=== PATIENT | male | born 1995 | race Hispanic/Latino ===

== ENCOUNTER 2018-04-16 18:09 | Emergency (ER) | payer MEDICAID, OTHER ==
[2018-04-16] MEDS ORDERED: IBUPROFEN 600 MG TABLET ONE (19:46)
[2018-04-16] MEDS ORDERED: CYCLOBENZAPRINE HCL 10 MG TABLET ONE (19:46)
== END 2018-04-16 20:11 | disposition home or self-care (01) ==
LOC: EDH 18:09
DX: S40.021A Contusion of right upper arm, initial encounter (principal); Z72.0 Tobacco use; V49.49XA Driver injured in collision with other motor vehicles in traffic accident, initial encounter; Y93.89 Activity, other specified; Y92.410 Unspecified street and highway as the place of occurrence of the external cause; Y99.8 Other external cause status
CPT/HCPCS: 73060; 73090

== ENCOUNTER 2019-09-09 03:26 | Emergency (ER) | payer SELFPAY ==
[2019-09-09] MEDS ORDERED: METOCLOPRAMIDE 10 MG/2 ML VIAL ONE (03:50)
[2019-09-09] MEDS ORDERED: ONDANSETRON HCL 4 MG/2 ML VIAL ONE (03:50)
[2019-09-09] MEDS ORDERED: FAMOTIDINE/PF 20 MG/2 ML VIAL IV ONE (03:50)
[2019-09-09 04:14] LABS: BASOPHILS % (AUTO) 0.2 % (0.0-5.0); EOSINOPHILS % (AUTO) 0.6 % (0.0-8.0); HEMATOCRIT 43.9 % (42-54); LYMPHOCYTES % (AUTO) 20.5 % (21.0-51.0); MEAN CORPUSCULAR HGB CONC 34.9 g/dL (32.0-36.0); MONOCYTES % (AUTO) 6.6 % (3.0-13.0); NEUTROPHILS % (AUTO) 71.7 % (40.0-77.0); PLATELET COUNT (AUTO) 246 K/uL (130-400); RED BLOOD CELL COUNT(AUTO) 4.93 MIL/uL (4.50-6.20); RED CELL DISTRIBUTION WIDTH 11.9 % (11.0-15.5); WHITE BLOOD COUNT (AUTO) 12.5 K/uL (4.8-10.8)
[2019-09-09 04:22] LABS: CREATININE 1.2 mg/dL (0.5-1.5); POTASSIUM 3.9 mmol/L (3.5-5.1)
[2019-09-09 04:26] LABS: ALBUMIN 4.2 g/dL (3.5-5.0); BILIRUBIN,TOTAL 0.5 mg/dL (0.2-1.0)
== END 2019-09-09 06:02 | disposition home or self-care (01) ==
LOC: EDH 03:26
DX: K29.00 Acute gastritis without bleeding (principal); E86.9 Volume depletion, unspecified
CPT/HCPCS: 36415; 76705; 80053; 83690; 85025; 96361; 96374; 96375; 99284; J2405; J2765; J3490; J7030

== ENCOUNTER 2019-11-14 17:51 | Inpatient (IN) | payer OTHER ==
[~2019-11-14] VITALS: Ht 180.3 cm; Wt 131.1 kg
[2019-11-14] MEDS ORDERED: KETOROLAC TROMETHAMINE 30MG/ML ONE (18:15)
[2019-11-14 18:45] LABS: BASOPHILS % (AUTO) 0.3 % (0.0-5.0); EOSINOPHILS % (AUTO) 0.1 % (0.0-8.0); HEMATOCRIT 44.2 % (42-54); LYMPHOCYTES % (AUTO) 11.2 % (21.0-51.0); MEAN CORPUSCULAR HEMOGLOBIN 31.7 pg (27.0-33.0); MEAN CORPUSCULAR HGB CONC 35.3 g/dL (32.0-36.0); MEAN CORPUSCULAR VOLUME 89.8 fL (79-99); MONOCYTES % (AUTO) 7.5 % (3.0-13.0); PLATELET COUNT (AUTO) 316 K/uL (130-400); RED BLOOD CELL COUNT(AUTO) 4.92 MIL/uL (4.50-6.20); RED CELL DISTRIBUTION WIDTH 11.5 % (11.0-15.5); WHITE BLOOD COUNT (AUTO) 22.4 K/uL (4.8-10.8)
[2019-11-14 19:05] LABS: CREATININE 1.2 mg/dL (0.5-1.5); POTASSIUM 3.8 mmol/L (3.5-5.1)
[2019-11-14] MEDS ORDERED: CEFTRIAXONE SODIUM 2 GM VIAL ONE (19:05)
[2019-11-14] MEDS ORDERED: SODIUM CHLORIDE 0.9% 100 ML IV ONE (19:06)
[2019-11-14 19:10] LABS: ALBUMIN 3.5 g/dL (3.5-5.0); BILIRUBIN,DIRECT 0.2 mg/dL (0.0-0.3); BILIRUBIN,TOTAL 0.7 mg/dL (0.2-1.0); TOTAL PROTEIN, SERUM 9.4 g/dL (6.0-8.3)
[2019-11-14] MEDS ORDERED: IOHEXOL-350 50ML VIAL IV ONE (19:19)
[2019-11-14] MEDS ORDERED: DEXAMETHASONE SOD PHOSPHATE 10MG/ML 1ML VIAL ONE (20:49)
[2019-11-14] MEDS ORDERED: ZOSYN 3.375GM+NS 50ML 50 ML IV ONE (21:14)
[2019-11-14] MEDS ORDERED: VANCOMYCIN 1GM+NS 250ML 250 ML IV ONE (21:14)
[2019-11-14] MEDS ORDERED: MAG HYDROX/AL HYDROX/SIMETH ES 30 ML SUSP UDCUP PO PRN (22:45)
[2019-11-14] MEDS ORDERED: ZOLPIDEM TARTRATE 5 MG TAB PO PRN (22:45)
[2019-11-14] MEDS ORDERED: LACTULOSE 20 GM/30 ML UDCUP PO PRN (22:45)
[2019-11-14] MEDS ORDERED: UNASYN 3GM+NS 100ML 3 GM/100 ML IV.KIT IV SCH (22:45)
[2019-11-14] MEDS ORDERED: ACETAMINOPHEN 325 MG TAB PO PRN ×2 (22:45)
[2019-11-14] MEDS ORDERED: GUAIFENESIN-DM 200/20 MG 10 ML PO PRN (22:45)
[2019-11-14] MEDS ORDERED: MAG HYDROX/AL HYDROX/SIMETH 30 ML, LIDOCAINE HCL 2% VISCOUS 30 ML, DIPHENHYDRAMINE HCL ... PO PRN ×3 (22:45)
[2019-11-14] MEDS ORDERED: DIPHENHYDRAMINE HCL 25 MG CAPSULE PO PRN (22:45)
[2019-11-14] MEDS ORDERED: ONDANSETRON HCL 4 MG/2 ML VIAL IV PRN (22:45)
[2019-11-14] MEDS ORDERED: DiphenhydrAMINE HCL 50 MG/ML VIAL IV PRN (22:45)
[2019-11-14] MEDS ORDERED: NITROGLYCERIN 0.4 MG SL TAB SL PRN (22:45)
[2019-11-14] MEDS ORDERED: AMPICILLIN SODIUM/SULBACTAM NA 1.5GM VIAL ONE ×2 (22:56→23:04)
[2019-11-15 02:57] VITALS: BP 149/70
[2019-11-15 06:28] LABS: BASOPHILS % (AUTO) 0.3 % (0.0-5.0); LYMPHOCYTES % (AUTO) 9.4 % (21.0-51.0); MEAN CORPUSCULAR HEMOGLOBIN 31.5 pg (27.0-33.0); MEAN CORPUSCULAR HGB CONC 34.4 g/dL (32.0-36.0); MEAN CORPUSCULAR VOLUME 91.5 fL (79-99); MONOCYTES % (AUTO) 2.6 % (3.0-13.0); NEUTROPHILS % (AUTO) 86.5 % (40.0-77.0); PLATELET COUNT (AUTO) 290 K/uL (130-400); RED CELL DISTRIBUTION WIDTH 11.4 % (11.0-15.5); WHITE BLOOD COUNT (AUTO) 14.4 K/uL (4.8-10.8)
[2019-11-15 06:46] LABS: BILIRUBIN,TOTAL 0.4 mg/dL (0.2-1.0); POTASSIUM 4.1 mmol/L (3.5-5.1); TOTAL PROTEIN, SERUM 8.4 g/dL (6.0-8.3)
[2019-11-15] MEDS: [UNRECOGNIZED DRUG - OTHER] IV SCH ×3 (07:09→16:53)
[2019-11-15] MEDS: UNASYN IV SCH ×3 (07:09→16:53)
[2019-11-15] MEDS ORDERED: FAMOTIDINE/PF 20 MG/2 ML VIAL IV ONE (07:24)
[2019-11-15 08:00] VITALS: BP 132/69
--- NOTE | 2019-11-15 08:00 | NUR ---
ASSESSMENT PT IS AAOX3 DENIES CP DENIES SOB DENIES NV. RESTING IN BED. CALL LIGHT WITHIN REACH.
[2019-11-15] MEDS ORDERED: FAMOTIDINE/PF 20 MG/2 ML VIAL IV SCH (09:00)
[2019-11-15 11:28] VITALS: BP 128/66
[2019-11-15] MEDS ORDERED: METHYLPREDNISOLONE SOD SUCC 125MG/2ML VIAL IVP SCH (11:45)
[2019-11-15 16:00] VITALS: BP 152/75
--- NOTE | 2019-11-15 16:23 | NUR ---
INITIAL SW spoke with patient's mother, Diamond Anderson, [phone]. Patient lives with parents. No home services. DME: BPM. Patient is able to complete ADL's and drives. He is not working at this time. NHP is home. Patient does not have insurance or benefits. He is a [place] citizen. BRITTANY educated patient's mother on [place] $4 medication program and [facility] $5 medication program. Patient is being assisted by [employer] for financial matters. Addendum: 11/15/19 at 1627 by JENN JEAN SS Amended: Links added.
--- NOTE | 2019-11-15 16:52 | NUR ---
PATIENT DESIRES TO LEAVE AMA STATES HE WILL LEAVE AMA THIS EVENING. RIGOBERTO SHANKAR AND DR BUSTOS MADE AWARE.
--- NOTE | 2019-11-15 17:21 | NUR ---
PT SIGNED AMA PAPERWORK PIV REMOVED CATH TIP INTACT. AWAITING RIDE.
--- NOTE | 2019-11-15 17:47 | NUR ---
DOWN TO ER ENTRANCE ALL BELONGINGS TAKEN
== END 2019-11-15 17:20 | disposition left against medical advice (07) | DRG 153 ==
LOC: EDH 17:51 → EDHIP 17:52 → 4DH 11-15 02:11
PROVIDERS: ADMIT Internal Medicine; ATTEND Internal Medicine
DX: J36 Peritonsillar abscess (principal); Z68.41 Body mass index [BMI] 40.0-44.9, adult; D72.829 Elevated white blood cell count, unspecified; E66.9 Obesity, unspecified; F17.210 Nicotine dependence, cigarettes, uncomplicated; I10 Essential (primary) hypertension; H92.02 Otalgia, left ear; Z20.828 Contact with and (suspected) exposure to other viral communicable diseases
CPT/HCPCS: 36415; 70491; 71045; 80048; 80053; 80076; 83605; 85025; 87040; 87426; 87880; G0378; J0295; J0696; J1100; J1885; J2543; J2930; J3370; J3490; Q9967; U0003

== ENCOUNTER 2021-09-02 15:21 | Emergency (ER) | payer OTHER ==
[~2021-09-02] VITALS: Ht 180.3 cm; Wt 122.5 kg
[2021-09-02 15:24] VITALS: BP 170/104
[2021-09-02] MEDS ORDERED: D-ME1POW16 PO (16:21)
[2021-09-02] MEDS ORDERED: IBUP-2071 PO (16:21)
[2021-09-02] MEDS ORDERED: DIPHENHYDRAMINE HCL 25 MG CAPSULE PO ONE (16:30)
[2021-09-02] MEDS ORDERED: ACETAMINOPHEN 500 MG TABLET PO ONE (16:30)
== END 2021-09-02 16:47 | disposition home or self-care (01) ==
LOC: EDH 15:21
DX: J06.9 Acute upper respiratory infection, unspecified (principal); Z20.822 Contact with and (suspected) exposure to COVID-19; I10 Essential (primary) hypertension; Z79.1 Long term (current) use of non-steroidal anti-inflammatories (NSAID)
CPT/HCPCS: 87635; 87804 ×2; 99283; C9803

== ENCOUNTER 2023-10-05 21:24 | Emergency (ER) | payer OTHER ==
[~2023-10-05] VITALS: Ht 182.9 cm; Wt 95.3 kg
[~2023-10-05 21:24] MED LIST: D-ME1POW16 PO; IBUP-2071 PO
[2023-10-05] MEDS: CEFTRIAXONE 1G VIAL IM ONE (23:46)
[2023-10-05] MEDS ORDERED: CEPH500B PO (23:56)
[2023-10-05] MEDS: TETANUS/DIPHTHERIA TOXOID [ADULT] 0.5 ML VIAL IM ONE (23:58)
[2023-10-06 00:06] VITALS: BP 142/89; PULSE 65; RESP 16; O2SAT 98
== END 2023-10-06 00:11 | disposition home or self-care (01) ==
LOC: EDH 21:24
DX: L02.811 Cutaneous abscess of head [any part, except face] (principal); Z79.899 Other long term (current) drug therapy
CPT/HCPCS: 99285; 90714; 76536; 96372; 90471; J0696

== ENCOUNTER 2024-01-08 12:02 | Emergency (ER) | payer SELFPAY ==
[~2024-01-08] VITALS: Ht 182.9 cm; Wt 88.9 kg
[~2024-01-08 12:02] MED LIST changes: +CEPH500B PO
[2024-01-08 12:16] VITALS: BP 138/76; PULSE 70; RESP 16; TEMP 98.2; O2SAT 99
[2024-01-08] MEDS: NEOMY SULF/BACITRA/POLYMYXIN B 1 EACH PACKET TP ONE (12:23)
[2024-01-08] MEDS: cePHALexin 500 MG CAPSULE PO ONE (12:23)
[2024-01-08] MEDS ORDERED: CEPH500T PO (12:24)
== END 2024-01-08 12:33 | disposition home or self-care (01) ==
LOC: EDH 12:02
DX: S81.812A Laceration without foreign body, left lower leg, initial encounter (principal); Z79.899 Other long term (current) drug therapy; W18.39XA Other fall on same level, initial encounter; Y93.89 Activity, other specified; Y92.89 Other specified places as the place of occurrence of the external cause; Y99.8 Other external cause status

== ENCOUNTER 2024-05-18 13:51 | Emergency (ER) | payer SELFPAY ==
[~2024-05-18] VITALS: Ht 180.3 cm; Wt 95.3 kg
[~2024-05-18 13:51] MED LIST changes: +CEPH500T PO
--- NOTE | 2024-05-18 13:57 | ERN ---
ED Note History of Present Illness Stated Complaint: SUICIDE THOUGHTS Chief Complaint: Suicidal Ideation Time Seen by MD: 13:53 Dictation: PATIENT IS A 29-YEAR-OLD SUICIDAL MALE HERE WITH TWO COMPLAINTS 1ST COMPLAINT IS STATES HE HAS BEEN SUICIDAL FOR SEVERAL WEEKS AFTER STOPPING HIS MEDICATIONS UNILATERALLY FOR DEPRESSION. HE STATES HE WANTED TO RUN INTO TRAFFIC TO KILL HIMSELF THIS MORNING, WHEN HE GOT TO THE [employer] HE TWISTED HIS ANKLE AND NOW IS HAVING RIGHT ANKLE PAIN. HE STATES HE DID IT BECAUSE HE KNEW THE CAR WAS GOING TO HURT HIM. Allergies: Coded Allergies: No Known Drug Allergies (Unverified Allergy, Unknown, 01/08/24) Home Meds Active Scripts Cephalexin (Cephalexin) 500 Mg Tablet, 1 TAB PO TID for 10 Days, #30 TAB 0 Refills Prov:SABINE WERNER NP 01/08/24 Cephalexin Monohydrate (Keflex) 500 Mg Cap, 500 MG PO QID for 7 Days, #28 CAP Prov:LORNE PEREZ MD 10/05/23 Ibuprofen (Ibuprofen) 800 Mg Tablet, 800 MG PO TIDP PRN for PAIN, #45 TAB Prov:NIRALI CAZARES 09/02/21 D-Methorphan/PE/Acetaminophen (Theraflu Ms Severe Cold Pckt) 1 Each Powd.pack, 1 EACH PO QIDP, #20 PACK Prov:NIRALI CAZARES 09/02/21 Past Medical History Past Medical History: No Pertinent History Surgical History: None Family History: Negative Social History: Negative RN Note Reviewed/Agreed w/PFSH: Yes Review of System Dictation CONSTITUTIONAL: NEGATIVE EXCEPT FOR HPI HEAD/FACE: NEGATIVE EXCEPT FOR HPI EENT: NEGATIVE EXCEPT FOR HPI RESPIRATORY: NEGATIVE EXCEPT FOR HPI GASTROINTESTINAL/ABDOMINAL: NEGATIVE EXCEPT FOR HPI GENITOURINARY: NEGATIVE EXCEPT FOR HPI MUSCULOSKELETAL: NEGATIVE EXCEPT FOR HPI RIGHT LATERAL ANKLE PAIN INTEGUMENTARY: NEGATIVE EXCEPT FOR HPI NEUROLOGICAL/PSYCH: NEGATIVE EXCEPT FOR HPI SUICIDAL WITH PLANS TO RUN INTO TRAFFIC TO HEMATOLOGIC/LYMPHATIC: NEGATIVE EXCEPT FOR HPI ALL SYSTEMS NEGATIVE, EXCEPT NOTED ABOVE. 13 POINT REVIEW OF SYSTEMS ASSESSED AND ALL NEGATIVE EXCEPT FOR ABOVE. Initial Vital Sign VS Vital Signs Date Time Temp Pulse Resp B/P (MAP) Pulse Ox O2 Delivery O2 Flow Rate FiO2 05/18/24 13:52 98.1 64 16 134/92 98 Room Air Physical Exam Dictation VITAL SIGNS REVIEWED GENERAL APPEARANCE: ALERT, ORIENTED X 3, MILD ACUTE DISTRESS, WELL DEVELOPED, NOURISHED. HEAD AND FACE: NON-TRAUMATIC. EYES: PERRL, PINK CONJUNCTIVAS, EYELID NO TRAUMA, ANTERIOR CHAMBER WITH ARCUS SENILIS. EARS: PINNAS INTACT AND NO SIGNS OF TRAUMA OR ERYTHEMA EAR CANALS CLEAR AND NO DISCHARGE TM NO ERYTHEMA NOSE: NO DISCHARGE, NO BLEEDING. OROPHARYNX: MOUTH NORMAL, TONGUE PINK, PHARYNX CLEAR,NO ERYTHEMA, TONSILS NO EXUDATES, NO ABSCESSES NOTED, MUCOUS MEMBRANE MOIST NECK: SUPPLE, NON-TENDER, NO THYROMEGALY, NO MASSES, NO JVD, NO BRUITS BREAST:DEFERRED CHEST:NO TENDERNESS, NO CREPITUS, NO PARADOXICAL MOVEMENT, NO RETRACTIONS LUNGS:CLEAR, WELL-VENTILATED, SYMMETRIC, NO RALES, NO WHEEZING, NO RHONCHI, NO STRIDOR, GOOD BREATH SOUNDS BILATERALLY HEART: REGULAR RATE, REGULAR RHYTHM, NO MURMUR, NO GALLOPS VASCULAR: NO PERIPHERAL EDEMA, ABDOMEN: SOFT, POSITIVE BOWEL SOUNDS, NONDISTENDED, NO GUARDING, NONTENDER, NO REBOUND, NO MASSES NO HEPATOMEGALY, NO SPLENOMEGALY, NO WARD'S SIGN, NO HERNIAS. RECTAL: DEFERRED GENITAL: DEFERRED NEUROLOGICAL: NORMAL SPEECH, MOTOR FUNCTION INTACT, SENSORY FUNCTION INTACT PATIENT STATES HE IS SUICIDAL AND WANTS TO RUN INTO TRAFFIC TO KILL HIMSELF. MUSCULOSKELETAL: NECK NONTENDER, FULL RANGE OF MOTION, BACK NONTENDER, FULL RANGE OF MOTION, EXTREMITIES: MILD RIGHT LATERAL ANKLE PAIN. SKIN: COLOR PINK, DRY, NO TURGOR, NO RASH, NO LACERATIONS, NO ABRASIONS, NO CONTUSIONS. LYMPHATIC: DEFERRED Results (Laboratory/Radiology) Laboratory/Radiology Laboratory Tests Test 05/18/24 14:02 05/18/24 14:11 White Blood Count 7.4 K/uL (4.8-10.8) Red Blood Count 5.13 MIL/uL (4.50-6.20) Hemoglobin 16.2 g/dL (14.0-18.0) Hematocrit 44.1 % (42-54) Mean Corpuscular Volume 86.0 fL (79-99) Mean Corpuscular Hemoglobin 31.6 pg (27.0-33.0) Mean Corpuscular Hemoglobin Concent 36.7 g/dL (32.0-36.0) H Red Cell Distribution Width 12.1 % (11.0-15.5) Platelet Count 250 K/uL (130-400) Mean Platelet Volume 9.6 fL (7.5-10.5) Immature Granulocyte % (Auto) 0.4 % (0-1) Neutrophils (%) (Auto) 68.8 % (40.0-77.0) Lymphocytes (%) (Auto) 22.6 % (21.0-51.0) Monocytes (%) (Auto) 7.4 % (3.0-13.0) Eosinophils (%) (Auto) 0.5 % (0.0-8.0) Basophils (%) (Auto) 0.3 % (0.0-5.0) Neutrophils # (Auto) 5.1 K/uL (1.8-7.7) Lymphocytes # (Auto) 1.7 K/uL (1.0-4.8) Monocytes # (Auto) 0.6 K/uL (0.1-1.0) Eosinophils # (Auto) 0.04 K/uL (0.00-0.70) Basophils # (Auto) 0.02 K/uL (0.00-0.20) Absolute Immature Granulocyte (auto 0.03 K/uL (0-1) Nucleated Red Blood Cells 0.0 % (0.0-0.19) Red Blood Cell Morphology ANISO 1+ Sodium Level 138 mmol/L (136-145) Potassium Level 3.8 mmol/L (3.5-5.1) Chloride Level 103 mmol/L (101-111) Carbon Dioxide Level 27 mmol/L (21-32) Blood Urea Nitrogen 12 mg/dL (7-18) Creatinine 1.1 mg/dL (0.5-1.3) Glomerular Filtration Rate Calc 94 mL/min (>90) Random Glucose 87 mg/dL (70-105) Total Calcium 8.8 mg/dL (8.5-10.1) Total Creatine Kinase 224 U/L (21-232) Acetaminophen Level < 1 mcg/mL (10-29) L Serum Alcohol < 3 mg/dL (0-10) Urine Opiates Screen NEGATIVE (NEGATIVE) Urine Barbiturates Screen NEGATIVE (NEGATIVE) Urine Phencyclidine Screen NEGATIVE (NEGATIVE) Urine Amphetamines Screen NEGATIVE (NEGATIVE) Urine Benzodiazepines Screen NEGATIVE (NEGATIVE) Urine Cocaine Screen POSITIVE (NEGATIVE) H Urine Marijuana (THC) Screen POSITIVE (NEGATIVE) H ANKLE COMP 3VWS RT INDICATION: RIGHT LATERAL ANKLE PAIN AFTER TWISTING ANKLE THIS MORNING TECHNIQUE: ANKLE COMP 3VWS RT. FINDINGS AND IMPRESSION: No displaced fracture or dislocation is seen. Correlate clinically. There is mild soft tissue swelling No radiopaque foreign body is identified. Labs Reviewed?: Yes ED Course ED Course Orders Procedure Category Date Status Time Ankle Comp 3vws Rt RAD 05/18/24 Resulted 13:53 Drug Screen Urine LAB 05/18/24 Complete 13:53 Cbc With Differential LAB 05/18/24 Complete 13:53 Alcohol, Blood LAB 05/18/24 Complete 13:53 Acetaminophen LAB 05/18/24 Complete 13:53 Creatine Kinase, Total LAB 05/18/24 Complete 13:53 Basic Metabolic Panel LAB 05/18/24 Complete 13:53 Suicide Precautions CPOE 05/18/24 Transmitted 13:53 Vital Signs Date Time Temp Pulse Resp B/P (MAP) Pulse Ox O2 Delivery O2 Flow Rate FiO2 05/18/24 13:52 98.1 64 16 134/92 98 Room Air 1940/[place] TROPICAL HERE AND SCREENED TO PATIENT. PATIENT DOES NOT MEET CRITERIA FOR INPATIENT HOSPITALIZATION. DISCHARGED HOME WITH PASSIVE SUICIDAL THOUGHTS, ANXIETY REACTION, RIGHT ANKLE SPRAIN Medical Decision Making MDM MDM: DIFFERENTIAL DIAGNOSIS: SUICIDALITY/ANKLE SPRAIN/FRACTURE/DEPRESSION/MULTIPLE DRUG ABUSE/ANXIETY RATIONALE: TESTS CONSIDERED AND ORDERED SECONDARY TO SHARED DECISION MAKING INCLUDE: LABS/RADIOLOGY PREVIOUS OUTSIDE RECORDS REVIEWED: OLD ER VISITS. RISK OF COMPLICATION AND/OR MORBIDITY OR MORTALITY OF PATIENT MANAGEMENT: NONE MEDICATIONS-PER MEDICATION RECONCILIATION NEED FOR HOSPITALIZATION: PATIENT DOES NOT MEET CRITERIA FOR HOSPITALIZATION. NONE NEED FOR EMERGENCY MAJOR/MINOR SURGERY: NO THERE ARE NO SOCIAL CONCERNS WITH THIS PATIENT. PATIENT ABUSES MULTIPLE DRUGS TO INCLUDE COCAINE WITH RISK OF HEART ATTACK, STROKE, .. HE WAS STRONGLY ADVISED TO STOP PRESCRIPTION DRUG MANAGEMENT IBUPROFEN PRESCRIPTIONS WILL INCLUDE SYMPTOMATIC CARE PATIENT'S PRIOR EXTERNAL MEDICAL RECORDS FROM OTHER ER VISITS WERE REVIEWED BY ME INDICATED. PRIOR TESTING AND RESULTS FROM PREVIOUS VISITS WERE REVIEWED. PRIOR TESTS WERE TAKEN INTO ACCOUNT WITH MEDICAL DECISION MAKING AND RESOURCE UTILIZATION, INDEPENDENT HISTORIAN/HISTORIANS WERE USED TO OBTAIN COMPLETE MEDICAL HISTORY. I INDEPENDENTLY INTERPRETED THE TEST THAT WERE PERFORMED, RESULTS WERE REVIEWED BY ME AND CONSIDERED FINDINGS ON RADIOLOGY IF ORDERED. MEDICAL MANAGEMENT AND EXAMINATION INTERPRETATION DISCUSSIONS WERE HAD BY ME WITH OTHER QUALIFIED HEALTHCARE PROFESSIONALS INDICATED FOR THE PATIENT'S CARE. DX & DISP Disposition: Discharge Departure Impression: Primary Impression: Anxiety reaction Additional Impressions: Passive suicidal ideations, Polydrug abuse, continuous, Right ankle sprain Condition: Stable Scripts Ibuprofen (Ibuprofen 800 mg Tab) 800 Mg Tab 800 MG PO Q8H PRN for fever or pain, #30 TAB 0 Refills Prov: SABINE WERNER NP 05/18/24 Referrals: SELF,REFERRAL (PCP) Time of Disposition: 19:43 I have reviewed the case, and I agree with, Diagnosis and Plan SABINE WERNER NP May 18, 2024 13:57
[2024-05-18 14:22] LABS: BASOPHILS # (AUTO) 0.02 K/uL (0.00-0.20); BASOPHILS % (AUTO) 0.3 % (0.0-5.0); EOSINOPHILS # (AUTO) 0.04 K/uL (0.00-0.70); EOSINOPHILS % (AUTO) 0.5 % (0.0-8.0); HEMATOCRIT 44.1 % (42-54); IMMATURE GRANULOCYTE ABSOLUTE 0.03 K/uL (0-1); LYMPHOCYTES # (AUTO) 1.7 K/uL (1.0-4.8); LYMPHOCYTES % (AUTO) 22.6 % (21.0-51.0); MEAN CORPUSCULAR HEMOGLOBIN 31.6 pg (27.0-33.0); MEAN CORPUSCULAR HGB CONC 36.7 g/dL (32.0-36.0); MONOCYTES # (AUTO) 0.6 K/uL (0.1-1.0); MONOCYTES % (AUTO) 7.4 % (3.0-13.0); NEUTROPHILS # (AUTO) 5.1 K/uL (1.8-7.7); NEUTROPHILS % (AUTO) 68.8 % (40.0-77.0); PLATELET COUNT (AUTO) 250 K/uL (130-400); RED BLOOD CELL COUNT(AUTO) 5.13 MIL/uL (4.50-6.20); RED CELL DISTRIBUTION WIDTH 12.1 % (11.0-15.5); WHITE BLOOD COUNT (AUTO) 7.4 K/uL (4.8-10.8)
[2024-05-18 14:35] LABS: CARBON DIOXIDE 27 mmol/L (21-32); CHLORIDE 103 mmol/L (101-111); CREATININE 1.1 mg/dL (0.5-1.3); GLOMERULAR FILTR. RATE CALC 94 mL/min (>90); GLUCOSE,RANDOM 87 mg/dL (70-105); POTASSIUM 3.8 mmol/L (3.5-5.1); SODIUM SERUM 138 mmol/L (136-145); UREA NITROGEN, BLOOD 12 mg/dL (7-18)
[2024-05-18 14:40] LABS: AMPHET/METH SCREEN,URINE NEGATIVE (NEGATIVE); BARBITURATE SCREEN, URINE NEGATIVE (NEGATIVE); BENZODIAZEPINES SCREEN,URINE NEGATIVE (NEGATIVE); CANNABINOID SCREEN,URINE POSITIVE (NEGATIVE); COCAINE SCREEN,URINE POSITIVE (NEGATIVE); OPIATE SCREEN,URINE NEGATIVE (NEGATIVE); PHENCYCLIDINE SCREEN,URINE NEGATIVE (NEGATIVE)
--- NOTE | 2024-05-18 14:41 | HMCIMG ---
ANKLE COMP 3VWS RT INDICATION: RIGHT LATERAL ANKLE PAIN AFTER TWISTING ANKLE THIS MORNING TECHNIQUE: ANKLE COMP 3VWS RT. FINDINGS AND IMPRESSION: No displaced fracture or dislocation is seen. Correlate clinically. There is mild soft tissue swelling No radiopaque foreign body is identified.
[2024-05-18 14:46] LABS: ALCOHOL, BLOOD < 3 mg/dL (0-10); CREATINE KINASE, TOTAL 224 U/L (21-232)
[2024-05-18 14:50] LABS: ACETAMINOPHEN < 1 mcg/mL (10-29)
--- NOTE | 2024-05-18 16:23 | NUR ---
[facility] CONSULT COMPLETE, THEY WILL DISPATCH A PSYCHE SCREENER.
[2024-05-18] MEDS ORDERED: IBUP-2077 PO (19:44)
[2024-05-18 20:05] VITALS: BP 113/65; PULSE 71; RESP 18; TEMP 97.7; O2SAT 100
== END 2024-05-18 20:06 | disposition home or self-care (01) ==
LOC: EDH 13:51
DX: S93.401A Sprain of unspecified ligament of right ankle, initial encounter (principal); F41.1 Generalized anxiety disorder; R45.851 Suicidal ideations; F19.10 Other psychoactive substance abuse, uncomplicated; X50.1XXA Overexertion from prolonged static or awkward postures, initial encounter; Y93.89 Activity, other specified; Y92.89 Other specified places as the place of occurrence of the external cause; Y99.8 Other external cause status
CPT/HCPCS: 36415; 73610; 80048; 80305; 82550; 85025; 99284

== ENCOUNTER 2024-06-09 07:06 | Emergency (ER) | payer SELFPAY ==
[~2024-06-09] VITALS: Ht 182.9 cm; Wt 95.3 kg
[~2024-06-09 07:06] MED LIST changes: +IBUP-2077 PO
[2024-06-09 07:10] VITALS: TEMP 98.4
--- NOTE | 2024-06-09 08:03 | ERN ---
ED Note History of Present Illness Stated Complaint: CELLULITIS TO HEAD Chief Complaint: Cellulitis Time Seen by MD: 07:40 Dictation: History of present illness: 29-year-old male with past medical history of anxiety, high blood pressure(not on medications) presented to ED with complaints of swelling over back of head and over forehead of 3 days duration. As per the patient, he noticed the swelling when he woke up from sleep. He states that it might be from bug bites ?he found a spider near the couch. Swelling over the right forehead rapidly increased in size within past couple of hours. Patient and his ex- tried to squeeze the swelling. Similar history in the past. He also states that he has headache, pain over the swelling, and finds it difficult to find words. No fever, no body, no joint pain, no blurry of vision reported. Allergies: Coded Allergies: No Known Drug Allergies (Unverified Allergy, Unknown, 01/08/24) Home Meds Active Scripts Ketorolac Tromethamine (Toradol) 10 Mg Tab, 1 TAB PO TID for pain for 5 Days, #15 TAB 0 Refills Prov:NADEGE SANDHU MD 06/09/24 Cetirizine HCl (Cetirizine HCl) 10 Mg Tab.chew, 1 TAB PO HS for allergy symptoms for 5 Days, #5 TAB 0 Refills Prov:NADEGE SANDHU MD 06/09/24 Mupirocin (Mupirocin Ointment) 2 % Oint, 1 APPL TP TID for 5 Days, #15 GM 0 Refills apply to affected area(s) Prov:NADEGE SANDHU MD 06/09/24 Doxycycline Hyclate (Doxycycline Hyclate) 100 Mg Capsule, 1 CAP PO BID for Scalp swelling for 7 Days, #14 CAP 0 Refills Prov:NADEGE SANDHU MD 06/09/24 Ibuprofen (Ibuprofen 800 mg Tab) 800 Mg Tab, 800 MG PO Q8H PRN for fever or pain, #30 TAB 0 Refills Prov:SABINE WERNER NP 05/18/24 Cephalexin (Cephalexin) 500 Mg Tablet, 1 TAB PO TID for 10 Days, #30 TAB 0 Ref ills Prov:SABINE WERNER NP 01/08/24 Cephalexin Monohydrate (Keflex) 500 Mg Cap, 500 MG PO QID for 7 Days, #28 CAP Prov:LORNE PEREZ MD 10/05/23 Ibuprofen (Ibuprofen) 800 Mg Tablet, 800 MG PO TIDP PRN for PAIN, #45 TAB Prov:NIRALI CAZARES 09/02/21 D-Methorphan/PE/Acetaminophen (Theraflu Ms Severe Cold Pckt) 1 Each Powd.pack, 1 EACH PO QIDP, #20 PACK Prov:NIRALI CAZARES 09/02/21 Past Medical History Past Medical History: No Pertinent History Surgical History: None Family History: Negative Social History: Negative Review of System Dictation REVIEW OF SYSTEMS CONSTITUTIONAL: Denies fevers, chills, or night sweats. No unintentional weight loss reported. ENT: No hearing loss, otalgia, otorrhea, rhinitis, rhinorrhea, hoarseness, or sore throat. CARDIOVASCULAR: Denies any exertional angina, dyspnea on exertion, orthopnea, paroxysmal nocturnal dyspnea, palpitations claudication. PULMONARY: Denies any shortness of breath, cough, phlegm / sputum, hemoptysis, pleuritic chest pain. SLEEP: Denies morning headaches, daytime somnolence or napping. Denies difficul ty falling asleep, staying asleep, waking from sleep. Denies knowledge of snoring. GASTROINTESTINAL: Denies any type of dysphagia to either liquids or solids. Denies nausea, vomiting, abdominal pain, diarrhea, constipation, blood in stools . NEUROLOGICAL: Denies headache, motor weakness, sensory deficit, vertigo / spinning sensation, gait abnormalities, or tremors. GENITOURINARY: Denies frequency, urgency, nocturia, hematuria or incontinence, low urinary stream, straining to void, urinary intermittency or hesitancy ENDOCRINOLOGY: Denies polyuria, polydipsia, polyphagia or heat / cold intolerance. HEMATOLOGY: Denies thrombophilia / previous clots, or coagulopathy / bleeding disorders. ONCOLOGIC: Denies personal history of malignancy. DERMATOLOGIC: Denies rashes or pruritus. PSYCHIATRIC: Denies any suicidal or homicidal ideation. Denies hallucinations. Initial Vital Sign VS Vital Signs Date Time Temp Pulse Resp B/P (MAP) Pulse Ox O2 Delivery O2 Flow Rate FiO2 06/09/24 07:08 98.4 79 16 135/84 97 Room Air 0 06/09/24 07:10 21 Physical Exam Dictation PHYSICAL EXAM GENERAL APPEARANCE: Well nourished . Awake and alert. Oriented to time, place and person. No acute cardiopulmonary distress. HEENT: Head normocephalic , 3 x 3 cm swelling over the occipital region-crusted point in the center, fluctuant and tender. 4x4 cm swelling on the right forehead-soft, tender with crusted point the center. Sclera anicteric . Pupils are round and reactive. Extraocular movements intact . No conjunctival injection. No nasal congestion. No throat congestion .Oral mucosa moist. NECK: Supple. No JVD. No thyromegaly. No submental, submandibular, pre- /postauricular, occipital or supraclavicular lymphadenopathy. No carotid bruits. CHEST: Normal chest expansion. No Telemetry. LUNGS: Clear to auscultation bilaterally . No rales, rhonchi or any wheezing. Equal tactile fremitus. Resonant to percussion . CARDIOVASCULAR: Regular rate and rhythm. S1 and S2 normal. No rubs, murmurs or gallops. ABDOMEN: Soft, nontender, and nondistended. There is no rebound tenderness, voluntary guarding, or rigidity. No hepatosplenomegaly. Bowel sounds normal in all four quadrants . NEUROLOGICAL: Cranial nerves II-XII grossly intact. Motor is 5/5 in bilateral upper and lower extremities . No sensory deficits. EXTREMITIES: No edema, No cyanosis , No clubbing. Good capillary refill. SKIN: No skin breakdown. No rashes or lesions . PSYCHIATRY: Normal affect .No auditory or visual hallucinations. Normal speech. No dysarthria. Results (Laboratory/Radiology) Laboratory/Radiology Laboratory Tests Test 06/09/24 08:23 White Blood Count 16.1 K/uL (4.8-10.8) H Red Blood Count 4.66 MIL/uL (4.50-6.20) Hemoglobin 14.8 g/dL (14.0-18.0) Hematocrit 41.3 % (42-54) L Mean Corpuscular Volume 88.6 fL (79-99) Mean Corpuscular Hemoglobin 31.8 pg (27.0-33.0) Mean Corpuscular Hemoglobin Concent 35.8 g/dL (32.0-36.0) Red Cell Distribution Width 11.9 % (11.0-15.5) Platelet Count 234 K/uL (130-400) Mean Platelet Volume 9.0 fL (7.5-10.5) Nucleated Red Blood Cells 0.0 % (0.0-0.19) Sodium Level 137 mmol/L (136-145) Potassium Level 4.0 mmol/L (3.5-5.1) Chloride Level 99 mmol/L (101-111) L Carbon Dioxide Level 33 mmol/L (21-32) H Blood Urea Nitrogen 11 mg/dL (7-18) Creatinine 0.8 mg/dL (0.5-1.3) Glomerular Filtration Rate Calc 124 mL/min (>90) Random Glucose 94 mg/dL (70-105) Total Calcium 8.9 mg/dL (8.5-10.1) CT Scan Comment: Exam Type: CT HEAD/BRAIN W/O CONTRAST Clinical Information: SWELLING FOREHEAD AND OCCPUT, DIFFICULTY FINDING WORDS The examination is unremarkable. Wilson-white matter junction is preserved. No intra or extra axial lesions or fluid collections are seen. Specifically, wilson and white matter are normal in signal characteristics with normal caliber of ventricles and periventricular cisterns with no evidence of intra or or extra-axial hemorrhage, lacunar infarct, or major territorial infarct, mass, or other abnormality. There are no infarcts. There are no hemorrhages. Periventricular white matter locations are preserved. The orbital contents and structures of the posterior fossa are intact. Possible right frontoparietal scalp hematoma without underlying fractures. Impression: Normal CT of the brain. ED Course ED Course Orders Procedure Category Date Status Time Cbc Without LAB 06/09/24 Complete Differential 07:39 Basic Metabolic Panel LAB 06/09/24 Complete 07:39 Ct Head/Brain W/O CT 06/09/24 Resulted Contrast 07:39 Dexamethasone 4mg/Ml PHA 06/09/24 Complete 1ml Vial (Dexametha 08:00 Ketorolac PHA 06/09/24 Complete Tromethamine 15mg/Ml 08:00 Dexamethasone 10mg/Ml PHA 06/09/24 Complete 1ml Vial (Dexameth 08:18 Current Medications Medications (Trade) Dose Ordered Sig/Thao Route PRN Reason Start Time Stop Time Status Last Admin Dose Admin Dexamethasone Sodium Phosphate (dexaMETHasone 4MG/ML 1ML VIAL) 4 mg ONCE ONCE IV 06/09/24 08:00 06/09/24 08:01 DC Dexamethasone Sodium Phosphate (dexaMETHasone 10MG/ML 1ML VIAL) 10 mg STK-MED ONCE .ROUTE 06/09/24 08:18 06/09/24 08:19 DC 06/09/24 08:21 Ketorolac Tromethamine (toRADol) 15 mg ONCE ONCE IM 06/09/24 08:00 06/09/24 08:01 DC 06/09/24 08:21 Vital Signs Date Time Temp Pulse Resp B/P (MAP) Pulse Ox O2 Delivery O2 Flow Rate FiO2 06/09/24 08:45 59 16 132/71 100 Room Air* 0 21 06/09/24 07:10 98.4 85 16 135/84 96 Room Air* 0 21 06/09/24 07:08 98.4 79 16 135/84 97 Room Air 0 7:45 a.m.-patient is hemodynamically stable. Ordered CBC, BNP, CT head given the symptoms. Plan is to drain the swelling. 9:30 am : No pus material drained. I&D done on the occipital swelling . bloody material squezed out . CT brain- normal. WBC 16.1,Vitals stable. 9:45 am: patient tolerated the procedure well.Will discharge him home . Medical Decision Making MDM Differential diagnosis : Bug bite, local allergic reaction, furunculitis Rationale: Tests considered and ordered secondary to shared decision making include: CBC, Bmp, CT head I will re-evaluate the patient after treatment and diagnostic exams have returned to determine whether they require further testing, can be safely discharged home, or need admission for further treatment and evaluation. Given the social determinants of health affecting care, including literacy, access to medical care, prescription drug management, and [id number] drugs, I will ensure that treatment plans are tailored accordingly. There are no social concerns with this patient. Risk of complication and/or morbidity or mortality of patient management: None Need for hospitalization: Patient does not meet criteria for hospitalization. Need for emergency major/minor surgery: No Prescription drug management Prescriptions will include symptomatic care Medications-Per medication reconciliation Previous outside records reviewed: Old ER visits. Patient's prior external medical records from other ER visits were reviewed by me as indicated. Prior testing and results from previous visits were reviewed. Prior tests were taken into account with medical decision making and resource utilization, independent historian/historians were used to obtain complete medical history. I independently interpreted the test that were performed, results were reviewed by me and considered findings on radiology. Medical management and examination interpretation discussions was done by me with other qualified healthcare professionals as indicated for the patient's care. Revaluation Occiptal swelling -s/p I&D drained bloody material. Disposition :Home Procedure Blade Size: 11 I & D Procedure: no betadine prep Progress Under aseptic precautions, I and D of occipital swelling done using blade number 11. Bloody material squeezed out from the swelling. No pus noted. Patient tolerated the procedure well DX & DISP Disposition: Discharge Departure Impression: Primary Impression: Scalp hematoma Additional Impression: Swelling of scalp Condition: Stable Scripts Ketorolac Tromethamine (Toradol) 10 Mg Tab 1 TAB PO TID for pain for 5 Days, #15 TAB 0 Refills Prov: NADEGE SANDHU MD 06/09/24 Cetirizine HCl (Cetirizine HCl) 10 Mg Tab.chew 1 TAB PO HS for allergy symptoms for 5 Days, #5 TAB 0 Refills Prov: NADEGE SANDHU MD 06/09/24 Mupirocin (Mupirocin Ointment) 2 % Oint 1 APPL TP TID for 5 Days, #15 GM 0 Refills apply to affected area(s) Prov: NADEGE SANDHU MD 06/09/24 Doxycycline Hyclate (Doxycycline Hyclate) 100 Mg Capsule 1 CAP PO BID for Scalp swelling for 7 Days, #14 CAP 0 Refills Prov: NADEGE SANDHU MD 06/09/24 Referrals: SELF,REFERRAL (PCP) I performed a substantive portion of the visit. I have reviewed and personally made and approve the management plan that is documented in the notes by myself with JUVENCIO/resident. I acknowledged full responsibility for the patient's management plan. NADEGE SANDHU MD Jun 09, 2024 08:03 ALVARADO HAMMOND DO Jun 09, 2024 10:57
[2024-06-09] MEDS: ketOROlac 15MG/ML VIAL (15MG/ML) IM ONE (08:21)
[2024-06-09] MEDS: dexaMETHasone SOD PHOSPHATE 10MG/ML 1ML VIAL ONE (08:21)
[2024-06-09] MEDS: dexaMETHasone SOD PHOSPHATE 4 MG/ML 1ML VIAL IV ONE (08:27)
[2024-06-09 08:36] LABS: CREATININE 0.8 mg/dL (0.5-1.3)
[2024-06-09 08:45] VITALS: BP 132/71; PULSE 59; RESP 16; O2SAT 100
--- NOTE | 2024-06-09 09:12 | HMCIMG ---
Exam Type: CT HEAD/BRAIN W/O CONTRAST Clinical Information: SWELLING FOREHEAD AND OCCPUT, DIFFICULTY FINDING WORDS Comparison: None CT Dose Index (CTDI): 57.33 mGy Dose Length Product (DLP): 956.79 total mGy-cm Findings: The examination is unremarkable. Wilson-white matter junction is preserved. No intra or extra axial lesions or fluid collections are seen. Specifically, wilson and white matter are normal in signal characteristics with normal caliber of ventricles and periventricular cisterns with no evidence of intra or or extra-axial hemorrhage, lacunar infarct, or major territorial infarct, mass, or other abnormality. There are no infarcts. There are no hemorrhages. Periventricular white matter locations are preserved. The orbital contents and structures of the posterior fossa are intact. Possible right frontoparietal scalp hematoma without underlying fractures. Impression: Normal CT of the brain. This study was performed using dose reduction techniques to include automated exposure control and/or adjustment of the mA and/or kV according to patient size.
[2024-06-09] MEDS ORDERED: DOXY100C5 PO (10:09)
[2024-06-09] MEDS ORDERED: KETO10 PO (10:09)
[2024-06-09] MEDS ORDERED: MUPI22OI2 TP (10:09)
[2024-06-09] MEDS ORDERED: CETI10TA87 PO (10:09)
== END 2024-06-09 09:00 | disposition home or self-care (01) ==
LOC: EDH 07:06
DX: S00.03XA Contusion of scalp, initial encounter (principal); R22.0 Localized swelling, mass and lump, head; Z79.1 Long term (current) use of non-steroidal anti-inflammatories (NSAID); X58.XXXA Exposure to other specified factors, initial encounter; Y93.89 Activity, other specified; Y92.89 Other specified places as the place of occurrence of the external cause; Y99.8 Other external cause status
CPT/HCPCS: 10140; 99285; 80048; 36415; 70450; 96372 ×2; J1885; J1100; 96374